=== PATIENT | female | born 1985 | race Caucasian/White ===

== ENCOUNTER → 2017-10-20 | Outpatient (CLI) | payer BC ==
[~2017-10-20] MED LIST: Augmentin 875-1 EACH PO; IBUP800 PO; LOW OGESTREL PO; Norco 5-325 Ta1 EACH PO; PROM25 PO; Percocet 5-3251 EACH PO; Prozac20 MG
== END | disposition home or self-care (01) ==
LOC: LAB SHORT 09:30 → LAB 09:30
DX: L03.019 Cellulitis of unspecified finger (principal)
CPT/HCPCS: 87070; 87077; 87147; 87186; 87205

== ENCOUNTER 2022-05-22 07:40 | Day surgery (SDC) | payer OTHER ==
[~2022-05-22] VITALS: Ht 165.1 cm; Wt 91.8 kg
[2022-05-22] MEDS ORDERED: ESTROVEN CMPLT M4 MG PO ×2 (08:30→08:39)
--- NOTE | 2022-05-22 10:16 | NUR ---
05/22/22 1016 Sanjeev Burden ROPIVACAINE 0.5% 30 MLS MIXED W/ EPI 0.15 (1MG/ML) TO MAKE ROPIVACAINE 0.5% 1:200,000 [facility].
--- NOTE | 2022-05-22 10:46 | NUR ---
05/22/22 1046 NABEEL TOPETE DESCRIBES PAIN UNCOMFORTABLE. 07/10
--- NOTE | 2022-05-22 11:42 | NUR ---
05/22/22 Ninfa2 Dipti Stone 1138: PATIENT STATES READINESS TO GO HOME AND TOLERABLE PAIN, ASSISTED TO WC TO BE TAKEN TO CAR FOR DISCHARGE
== END 2022-05-22 11:38 | disposition home or self-care (01) ==
LOC: ORSCSDS 07:40
PROVIDERS: Podiatrist Foot & Ankle Surgery
PROC: 0JBR0ZZ Excision of Left Foot Subcutaneous Tissue and Fascia, Open Approach (ICD-10-PCS; principal; 2022-05-22 09:15)
DX: D17.9 Benign lipomatous neoplasm, unspecified (principal); R60.0 Localized edema; M79.672 Pain in left foot; J45.909 Unspecified asthma, uncomplicated; K21.9 Gastro-esophageal reflux disease without esophagitis; E66.9 Obesity, unspecified; Z68.33 Body mass index [BMI] 33.0-33.9, adult
CPT/HCPCS: J0171; J0690; J1100; J2250; J2405; J2704; J2795; J3010; J7120